=== PATIENT | female | born 1975 | race Caucasian/White ===

== ENCOUNTER 2024-03-06 09:46 | Outpatient (AMB) | payer OTHER, SELFPAY ==
[2024-03-06 10:11] VITALS: BP 130/78; PULSE 71; TEMP 36.4; O2SAT 97; BMI 29.4
--- NOTE | 2024-03-06 10:11 | MHC.OFFWIV ---
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 Intake Note: pt is here today for rt thumb infection started 1 week ago Patient Tobacco Use Status: Never used Tobacco Allergies amoxicillin Allergy (Mild, Verified 03/06/24 10:38) rash Medication List - Last Reconciled 03/06/24 by LESLIE Roblero doxycycline hyclate 100 mg PO BID Do you need a note to return to daycare/school/sports/work: No HPI HPI Comments History of Present Illness Details Patient is a 48-year-old female in today for sick visit. She states that for the past week she pulled a hangnail out on her right thumb, that left a small wound. Patient has tried utilizing Epsom salt on the area noticed that the skin around her thumb became red and painful to touch. Patient denies drainage from the area. Patient denies fever. [facility] Social History Patient Tobacco Use Status: Never used Tobacco Review of Systems Const All systems reviewed & are unremarkable except as noted in HPI and below Denies chills and Denies fever(s) Card Denies chest pain and Denies dyspnea Resp Denies dyspnea Physical Exam Vital Signs: Last Vital Signs Temp 97.5 F 03/06/24 10:11 Pulse 71 03/06/24 10:11 BP 130/78 03/06/24 10:11 Pulse Ox 97 03/06/24 10:11 Oxygen Delivery Method Room Air 03/06/24 10:11 BMI result Body Mass Index 29.4 Vital signs reviewed stable. Const Other: Appearance: Alert.? Oriented X3.? No acute distress.? Head: Normocephalic, atraumatic, no step-offs or deformities CVS: Normal heart rate and rhythm.? Pulses normal.? Skin: Erythema around base of right thumbnail, spread down 0.5 cm. No drainage. Warm to touch. ? Extremities: Tednerness ro right thumb. Full ROM. Neuro: Oriented X 3.? No motor deficit.? No sensory deficit. CN 2-12 intact Assessment & Plan Assessment & Plan (1) Cellulitis: Comment: Patient has allergy to amoxicillin, therefore will give doxycycline. Patient has been educated she can also utilize back straight luna to keep wound covered while using. Code(s): L03.90 - Cellulitis, unspecified Qualifiers: Site of cellulitis: extremity Site of cellulitis of extremity: finger Laterality: right Qualified Code(s): L03.011 - Cellulitis of right finger Plan: Take your medications as prescribed. If you were prescribed antibiotics today, it is important that you take your medication to their entirety, do not skip any doses, do not finish them early. Follow-up with your primary care provider this week. Return to the emergency department with new or worsening symptoms. Such as fevers, chills, chest pain, shortness of breath, nausea, vomiting, dizziness, headache, vision changes, lethargy In case of emergency call 911 Plan Follow-up with PCP Medications: New doxycycline hyclate 100 mg PO BID 14 tabs 0RF Coding Level of Care Code Est Pt Level 3 (33719) Diagnoses Cellulitis of finger of right hand L03.011 Site of cellulitis: extremity Site of cellulitis of extremity: finger Laterality: right Time Spent (min) 21
== END 2024-03-06 11:23 | disposition home or self-care (01) ==
PROVIDERS: Visit Provider Nurse Practitioner Primary Care
DX: L03.011 Cellulitis of right finger (principal)
CPT/HCPCS: 99213

== ENCOUNTER 2024-08-19 09:10 | Outpatient (AMB) | payer OTHER, SELFPAY ==
--- NOTE | 2024-08-19 09:31 | MHC.PC.OV ---
Vital Signs 08/19/24 09:38 Height 5 ft 3 in Weight 167 lb 6 oz BMI 29.6 BP 122/70 Blood Pressure Location Lt brachial Position Sitting Respiration 13 Pulse 76 Pulse Source Pulse Oximeter Pulse Oximetry (%) 98 Oxygen Delivery Method Room Air Intake Visit Reasons: annual Intake Note: new patient to establish care Allergies amoxicillin Allergy (Mild, Verified 08/19/24 09:56) rash Medication List - Last Reconciled 08/19/24 by July Cedeno, EDUCATION COORDINATOR- acyclovir 5% (Zovirax) appl topical citalopram 20 mg PO DAILY promethazine 25 mg AR Q6H PRN sumatriptan succinate 25 mg PO Q2-4H PRN valacyclovir (Valtrex) 1,000 mg PO ONCE PRN Tobacco use date assessed: 08/19/24 Dental Screening Dental Screen Date: 08/19/24 Did you have a dental visit in the last 12 months?: Yes Did you have a dental problem in the last 6 months where you did not have access to dental care?: No Was dental information given to patient?: Patient has dentist HPI HPI Comments History of Present Illness Details 48 y/o F with MDD, migraines, herpes, eczema, stress incont, hyperlidipemia, torticollis s/p hysterectomy d/t uterine prolapse; has mesh in place everything but ovaries Social: 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 Colon declined at this time. Declined cologaurd. DEXA last period 2011, has not had one, orderd to be done w her Mammo 08/2025 at [place] Specialist Uro Chiropractor Here today to [facility] care. Coming from Dr Hewitt, records pending Was at [place] prior - records pending MDD is well controlled on citalopram 20 mg. Taking daily. Has been on this for years. Would like to continue. Has chronic and recurrent herpes which is suppressed with valacyclovir and topical Zovirax. Migraines are well controlled with sumatriptan and p.r.n. promethazine suppositories. Needs refill on all of her medications Complains of chronic neck pain associated with a bump behind her right jaw which is worse when she was TENS or stressed. Reports that it can throbbing radiating to her right temporal from time to time. Her previous primary care provider did order a CT scan however this was denied by insurance. She was provided a medical marijuana card but she does use to help her sleep at times however uses this sparingly. She was seen in the emergency room during the time of COVID when this pain was the worst. She was diagnosed with torticollis. She has been following with a chiropractor since this time which helps to provide some relief. She also puts her neck interaction at home which also seems to help. Wonders what else she can do to help the pain. Did take meloxicam which helps greatly with the pain and wonders if she can have a prescription for this. Has a mesh placed for uterine and bladder prolapse. Reports this was placed several years ago by Urology. She was stress incontinence. Wonders if this needs any follow up. Finally she complains of chronic pruritus affecting her right anterior lower leg. Reports that she was too dry patches which she describes as callused areas from excessive scratching. Reports that when she is nervous or anxious she scratches at these areas. She was applied topical creams anti-itch ointment without relief. Exam Awake alert oriented, no acute distress Neck full range of motion, pain at the base of the sternocleidomastoid muscle on the right side. PERRLA, EOMI Regular rate and rhythm Lung sounds clear to auscultation bilat Mood and affect appropriate Anterior aspect of right knee and just below are 2 flesh colored dry patches that are rough to touch, barely visible. plan Refill of all medications sent Advised to self referral back to urology for evaluation and treatment of her mesh. If a referral is needed from me asked her to send me a portal message. Tdap today. Declined flu vaccine. Offered and declined labs at this time. Start meloxicam 7.5 mg po PRN to help pain and neck. Continue with chiropractic medicine Trial betamethasone to the areas on the right lower leg if no improvement may need to consider a dermatology referral Return to the office in 2024 for complete physical exam, sooner as needed This note is constructed using voice recognition software. While every effort has been made to ensure accuracy in child care sitter, still errors may have been included Sometimes, these errors may affect the content or meaning of the given sentence . Total time spent caring for the patient today was 45 minutes. This includes time spent before the visit reviewing the chart, time spent during the visit, and time spent after the visit on documentation [facility] Medical History (Updated 08/19/24 @ 12:29 by July Cedeno [facility]) Eczema Herpes Migraines Depression Sinusitis Surgical History (Updated 08/19/24 @ 09:43 by Abrahan Parks MA) H/O: hysterectomy Family History (Updated 08/19/24 @ 09:44 by Abrahan Parks MA) Sister Mental health disorder Substance abuse Pancreas cancer Mother Hypertension Father Esophagus cancer Social History (Updated 08/19/24 @ 09:45 by Abrahan Parks MA) Household Members: Children Both parents involved: No Caregiver staying overnight: No Housing: House Are you a primary childcare aide to a significant other at home: Yes Do you presently have visiting nurse or other home services: No 75 years or older and lives alone: No Alcohol intake: current Alcohol intake frequency: a few times a week Patient Tobacco Use Status: Never used Tobacco e-Cigarette/Vaping Use: Never Used service: No Current occupational status: employed Current occupation: [employer] Cognitive needs: No Hearing needs: No Vision needs: Yes (wear glasses) Questionnaire PHQ-9 Over the last 2 weeks, how often have you been bothered by any of the following problems? 1. Little interest or pleasure in doing things: not at all 2. Feeling down, depressed, or hopeless: not at all 3. Trouble falling or staying asleep, or sleeping too much: not at all 4. Feeling tired or having little energy: not at all 5. Poor appetite or overeating: not at all 6. Feeling bad about yourself - or that you are a failure or have let yourself or your family down: not at all 7. Trouble concentrating on things, such as reading the newspaper or watching television: not at all 8. Moving or speaking so slowly that other people could have noticed. Or the opposite - being so fidgety or restless that you have been moving around a lot more than usual: not at all 9. Thoughts that you would be better off or of hurting yourself in some way: not at all Total score: 0 Depression Screening Interpretation: Negative Depression Screening Done: Yes 28642 - PHQ-9 Billing: Yes Source: Developed by Drs. Joaquin Rosa, Rupali Frank, Jules Hussein and colleagues, with an educational shad from [employer]. Thrive Questionnaire Date Thrive assessed: 08/19/24 I am a: Patient What is your living situation today?: I have a steady place to live Within the past 12 months, did the food you bought not last and you didn't have the money to get more?: Never true Within the past 12 months, did you worry whether your food would run out before you got money to buy more?: Never true Do you have trouble paying for medicines?: No Do you have trouble getting transportation to medical appointments?: No Do you have trouble paying your heating and electricity bill?: No Do you have trouble taking care of your child, family member or friend?: No Do you have trouble with day-to-day activities such as bathing, preparing meals, shopping, managing finances, etc.?: No Are you currently unemployed and looking for a job?: No Are you interested in more education?: No Please select the resources that you would like help with: None Currently or been in a relationship where the following occur: No concerns reported THRIVE Score: 0 AUDIT C Alcohol Use Questionnaire (AUDIT-C) 1. How often do you have a drink containing alcohol?: 2-3 times a week 2. How many drinks containing alcohol do you have on a typical day when you are drinking?: 1 or 2 3. How often do you have six or more drinks on one occasion?: Never Total Score: 3 Score Reviewed/Action Taken: Yes MARK-7 AMB Questionnaire MARK-7 Date MARK - 7 assessed: 08/19/24 Feeling nervous, anxious, or on edge: 1 = Several days Not being able to stop or control worryin = Several days Worrying too much about different things: 0 = Not at all Trouble relaxin = Several days Being so restless that it is hard to sit still: 0 = Not at all Becoming easily annoyed or irritable: 1 = Several days Feeling afraid as if something awful might happen: 0 = Not at all Total MARK-7 score (0-4 normal; 5-9 mild; 10-14 moderate; 15-21 severe): 4 Source: Developed by Drs. Joaquin Rosa, Rupali Frank, Jules Hussein and colleagues, with an educational shad from [employer]. MARK-7 Assessment Billing MARK-7 Assessment Tool: MARK-7 Assessment 30409 Physical exam (Primary Care) Vital Signs: Last Vital Signs Pulse 76 08/19/24 09:38 Resp 13 08/19/24 09:38 BP 122/70 08/19/24 09:38 Pulse Ox 98 08/19/24 09:38 Oxygen Delivery Method Room Air 08/19/24 09:38 BMI result Body Mass Index 29.6 BMI Assessment/Plan discussion: High BMI High, discussed plan: lifestyle Tobacco/Smoking Status: Tobacco use Status Tobacco use date assessed 08/19/24 08/19/24 09:40 Patient Tobacco Use Status Never used Tobacco 08/19/24 09:45 e-Cigarette/Vaping Use Never Used 08/19/24 09:45 PHQ-9: PHQ-9 Score PHQ-9: Total score 0 08/19/24 10:34 Depression Screening Interpretation: Negative Thrive Assessment: Date of Thrive Assessment Date Thrive assessed 08/19/24 08/19/24 09:46 Currently or been in a relationship where the following occur: No concerns reported Immunizations Boostrix Tdap 2.5 Lf unit-8 mcg-5 Lf/0.5 mL intramuscular syringe Performing Provider: ELODIA Rao Performing Location: [facility] Family Medicine Administered by: Bianca Curiel RN on 08/19/24 10:32 Dose Route Admin Location Dispensed Lot Number Expiration Date [facility] [employer] 0.5 mL IM Left Deltoid 0.5 mL [id number] 08/09/25 [id number] [employer] VIS Given Date VIS Provided VIS Publication Date 08/19/24 Single Vaccine 21 Eligibility Eligibility Date Funding Source Not [facility] Eligible 08/19/24 Private Coding Level of Care Code New Pt Level 4 (53569) Complex EM visit Add On G2211 Diagnoses Mild episode of recurrent major depressive disorder F33.0 Major depression episode severity: mild Migraine without aura and without status migrainosus, not intractable G43.009 Status migrainosus presence: without status migrainosus Intractability: not intractable Right torticollis M43.6 Stress incontinence N39.3 Moderate mixed hyperlipidemia not requiring statin therapy E78.2 Hyperlipidemia type: moderate mixed hyperlipidemia not requiring statin therapy Herpes B00.9 Intrinsic eczema L20.84 Eczema type: intrinsic Overweight (BMI 25.0-29.9) E66.3 Menopausal state N95.1 Screening for osteoporosis Z13.820 Additional Codes MARK-7 Assessment Billing - MARK-7 Assessment Tool: AMRK-7 Assessment 61712 ([id number]) Assessment & Plan Assessment & Plan (1) MDD (major depressive disorder), recurrent episode: Code(s): F33.9 - Major depressive disorder, recurrent, unspecified Category: Medical Qualifiers: Major depression episode severity: mild Qualified Code(s): F33.0 - Major depressive disorder, recurrent, mild Plan: . (2) Migraine without aura: Code(s): G43.009 - Migraine without aura, not intractable, without status migrainosus Category: Medical Qualifiers: Status migrainosus presence: without status migrainosus Intractability: not intractable Qualified Code(s): G43.009 - Migraine without aura, not intractable, without status migrainosus Plan: . (3) Right torticollis: Code(s): M43.6 - Torticollis Category: Medical Plan: . (4) Stress incontinence: Code(s): N39.3 - Stress incontinence (female) (male) Category: Medical Plan: . (5) Hyperlipidemia: Code(s): E78.5 - Hyperlipidemia, unspecified Category: Medical Qualifiers: Hyperlipidemia type: moderate mixed hyperlipidemia not requiring statin therapy Qualified Code(s): E78.2 - Mixed hyperlipidemia Plan: . (6) Herpes: Code(s): B00.9 - Herpesviral infection, unspecified Category: Medical Plan: . (7) Eczema: Code(s): L30.9 - Dermatitis, unspecified Category: Medical Qualifiers: Eczema type: intrinsic Qualified Code(s): L20.84 - Intrinsic (allergic) eczema Plan: . (8) Overweight (BMI 25.0-29.9): Code(s): E66.3 - Overweight Category: Medical Plan: . (9) Menopausal state: Comment: 2011 Code(s): N95.1 - Menopausal and female climacteric states Category: Medical Plan: . (10) Screening for osteoporosis: Code(s): Z13.820 - Encounter for screening for osteoporosis Category: Medical Plan: . Orders: Orders TDaP Immunization Today Z23 - Encounter for immunization XR DEXA axial skeleton 1 Year N95.1 - Menopausal and female climacteric states, Z13.820 - Encounter for screening for osteoporosis Medications: New acyclovir 5% (Zovirax) 1 appl topical ONCE PRN 5 grams 1RF HSV flare promethazine 25 mg AR Q6H PRN 12 ea 0RF nausea and vomiting meloxicam 7.5 mg PO DAILY PRN 90 tabs 0RF pain citalopram 20 mg PO DAILY 90 tabs 2RF sumatriptan succinate do not exceed 8 doses per 24 hrs 25 mg PO Q2-4H PRN 7 tabs 5RF migraine headache Valtrex (valacyclovir) 1,000 mg PO ONCE PRN 30 tabs 0RF outbreak NS betamethasone dipropionate 0.05% use for no more than 2 weeks in a row 1 appl topical BID PRN 45 grams 2RF skin irritation
[2024-08-19 09:38] VITALS: BP 122/70; PULSE 76; RESP 13; O2SAT 98; BMI 29.6
== END 2024-08-19 10:32 | disposition home or self-care (01) ==
PROVIDERS: Visit Provider Nurse Practitioner Family
DX: F33.0 Major depressive disorder, recurrent, mild (principal); G43.009 Migraine without aura, not intractable, without status migrainosus; M43.6 Torticollis; N39.3 Stress incontinence (female) (male); E78.2 Mixed hyperlipidemia; B00.9 Herpesviral infection, unspecified; L20.84 Intrinsic (allergic) eczema; E66.3 Overweight; N95.1 Menopausal and female climacteric states; Z13.820 Encounter for screening for osteoporosis; Z23 Encounter for immunization

== ENCOUNTER → 2024-08-19 09:10 | Outpatient (BNVA) | payer OTHER, SELFPAY | PROVIDERS: Visit Provider Nurse Practitioner Family | DX: F33.0 Major depressive disorder, recurrent, mild (principal); G43.009 Migraine without aura, not intractable, without status migrainosus; M43.6 Torticollis; N39.3 Stress incontinence (female) (male); Z23 Encounter for immunization; E78.2 Mixed hyperlipidemia; B00.9 Herpesviral infection, unspecified; L20.84 Intrinsic (allergic) eczema; E66.3 Overweight; Z68.29 Body mass index [BMI] 29.0-29.9, adult; N95.1 Menopausal and female climacteric states; Z79.899 Other long term (current) drug therapy | CPT/HCPCS: 90471; 90715; 96127 ==

== ENCOUNTER 2025-01-14 13:42 | Outpatient (AMB) | payer OTHER, SELFPAY ==
[2025-01-14 13:58] VITALS: BP 122/74; PULSE 76; TEMP 36.6; O2SAT 98
--- NOTE | 2025-01-14 13:58 | AM.OFFWIN_ITS ---
Intake Vital Signs 01/14/25 13:58 Height 5 ft 3 in BP 122/74 Blood Pressure Location Lt brachial Position Sitting Pulse 76 Pulse Source Pulse Oximeter Temp 97.9 F Temp Source Oral Pulse Oximetry (%) 98 Intake Visit Reasons: EP yeast infection Patient Tobacco Use Status: Never used Tobacco Allergies amoxicillin Allergy (Mild, Verified 01/14/25 13:59) rash Medication List - Last Reconciled 01/14/25 by Denise Storey MD acyclovir 5% (Zovirax) 1 appl topical ONCE PRN betamethasone dipropionate 0.05% 1 appl topical BID PRN citalopram 20 mg PO DAILY meloxicam 7.5 mg PO DAILY PRN promethazine 25 mg AL Q6H PRN sumatriptan succinate 25 mg PO Q2-4H PRN valacyclovir (Valtrex) 1,000 mg PO ONCE PRN Do you need a note to return to daycare/school/sports/work: No HPI EP yeast infection HPI Details History - The patient is a 49-year-old female pr esenting with recurrent vulvovaginal candidiasis. - She reports a history of recurrent epi sodes, with the most recent occurring last week. - Treatment with Fluconazole was prescri bed but symptoms persist - Wvsm-uox-nawvqmz antifungal treatments have been ineffective. - Symptoms include itching and a white d ischarge over the past few days. - There is no history of diabetes that m ight predispose her to recurrent infections. Problem List - Recurrent Vulvovaginal Candidiasis Patient Instructions - Take the prescribed medication as dire cted for the treatment of the yeast infection. - Monitor symptoms and report any worsen ing or lack of improvement. - Maintain personal hygiene to help prev ent further infections. Review of Systems - General: No fever no chills - Neurological: No headaches no dizziness - Ear nose throat: No sore throat no hearing difficulty no ear pain - Cardiovascular: No syncope, no chest pain, no palpitations - Gastrointestinal: No nausea vomiting or diarrhea Physical Exam - General: No acute distress - HEENT: No acute findings - Neck: Supple - Respiratory system: Able to talk in f ull sentences, no audible wheeze - Extremities: No new findings - SOFTWARE DEVELOPER: Alert awake oriented x3 motor se nsory intact - Skin: Normal turgor [facility] Medical History Eczema Herpes Migraines Depression Sinusitis Surgical History H/O: hysterectomy Family History Sister Mental health disorder Substance abuse Pancreas cancer Mother Hypertension Father Esophagus cancer Social History Household Members: Children Both parents involved: No Caregiver staying overnight: No Housing: House Are you a primary home care manager rn to a significant other at home: Yes Do you presently have visiting nurse or other home services: No 75 years or older and lives alone: No Alcohol intake: current Alcohol intake frequency: a few times a week Patient Tobacco Use Status: Never used Tobacco e-Cigarette/Vaping Use: Never Used service: No Current occupational status: employed Current occupation: [employer] Cognitive needs: No Hearing needs: No Vision needs: Yes (wear glasses) Physical Exam Vital Signs: Last Vital Signs Temp 97.9 F 01/14/25 13:58 Pulse 76 01/14/25 13:58 BP 122/74 01/14/25 13:58 Pulse Ox 98 01/14/25 13:58 Results AMB Urinalysis, Automated UA Leukoctes 0 Torey/uL Last Edit by Celio Suero CMA on 01/14/25 14:07 UA Nitrite Negative Last Edit by Celio Suero CMA on 01/14/25 14:07 UA Urobilinogen 0.2 mg/dL Last Edit by Celio Suero CMA on 01/14/25 14 :07 UA Protein 0 mg/dL Last Edit by Celio Suero CMA on 01/14/25 14:07 UA pH 6.0 Last Edit by Celio Suero CMA on 01/14/25 14:07 UA Blood 0 Jeancarlos/uL Last Edit by Celio Suero CMA on 01/14/25 14:07 UA Specific [place] 1.020 Last Edit by Celio Suero CMA on 01/14/25 14:07 UA Ketone Negative Last Edit by Celio Suero CMA on 01/14/25 14:07 UA Bilirubin 0 mg/dL Last Edit by Celio Suero CMA on 01/14/25 14:07 UA Glucose 0 mg/dL Last Edit by Celio Suero CMA on 01/14/25 14:07 Results Reviewed Results Reviewed: Laboratory Last Values Urine pH (Auto) 6.0 01/14/25 14:07 Specific [place] (Auto) 1.020 01/14/25 14:07 Urine Protein (Auto) 0 mg/dL 01/14/25 14:07 Glucose (UA)(Auto) 0 mg/dL 01/14/25 14:07 Urine Ketones (Auto) Negative 01/14/25 14:07 Urine Blood (Auto) 0 Jeancarlos/uL 01/14/25 14:07 Urine Nitrite (Auto) Negative 01/14/25 14:07 Urine Bilirubin (Auto) 0 mg/dL 01/14/25 14:07 Urine Urobilinogen (Auto) 0.2 mg/dL 01/14/25 14:07 Leukocyte Esterase (Auto) 0 Torey/uL 01/14/25 14:07 Assessment & Plan Assessment & Plan (1) Vaginal yeast infection: Code(s): B37.31 - Acute candidiasis of vulva and vagina Plan History - The patient is a 49-year-old female presenting with recurrent vulvovaginal candidiasis. - She reports a history of recurrent episodes, with the most recent occurring last week. - Treatment with Fluconazole was prescribed but symptoms persist - Hyqa-wdy-ntirpdj antifungal treatments have been ineffective. - Symptoms include itching and a white discharge over the past few days. - There is no history of diabetes that might predispose her to recurrent infections. Problem List - Recurrent Vulvovaginal Candidiasis Patient Instructions - Take the prescribed medication as directed for the treatment of the yeast infection. - Monitor symptoms and report any worsening or lack of improvement. - Maintain personal hygiene to help prevent further infections. Orders: Orders AMB Urinalysis Automated Today Z13.9 - Encounter for screening, unspecified Medications: New fluconazole 150 mg PO Q3D 4 days 4 tabs 0RF Coding Level of Care Code Est Pt Level 3 (00205) Diagnoses Vaginal yeast infection B37.31
--- OUTSIDE RECORDS SUMMARY | 2025-01-14 16:20 | XMS_ITS | Patient Health Record ---
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 Name Role Phone GANESH VALENCIA Primary Care Provider [phone] ALLERGIES Allergen (clinical drug ingredient) Drug/Non Drug Allergy documented on EMR Reaction Allergy Type Onset Date Status amoxicillin Amoxicillin rash Drug Allergy Act arsenio REASON FOR REFERRAL No Information MEDICATIONS Medication SIG (Take, Route, Frequency, Duration) Notes Start Date End Date Status Doxycycline Monohydrate 100 MG Oral doxycycline monohydrate 100 mg capsule 11/09/2022 Not-Taking Citalopram Hydrobromide 20 MG 1 tablet Oral Once a day for 90 days citalopram 20 mg tablet 07/26/2022 Active Valtrex 1 GM 1 tablet Orally Once a day Active predniSONE 20 MG Oral predniSONE 20 m g tablet 11/10/2022 Not-Taking PROBLEMS Problem Type ICD Code Onset Dates Problem Status W/U Status Risk SNOMED Code Notes Problem Abnormal mammogram (R92.8) Active confirmed [id number] Encounters Encounter Location Date Provider Diagnosis [address] [id number] 05/07/2024 GANESH VALENCIA PLAN OF TREATMENT Pending Test Test Name Order Date Ultrasound : Breasts, bilateral 08/15/20 23 Mammogram, left breast 08/23/2023 Mammogram (Bilateral), Diagnostic comput er aided 08/15/2023 Insurance Providers Payer Name Payer Address Payer Phone Subscriber Number Group Number Insured Name Patient Relationship to Insured Coverage Start Date Coverage End Date [address] [place] [phone] [id number] NIMISHA RUIZ Self - patient is the insured MEDICAL (GENERAL) HISTORY Medical History History ICD Code Sinus infections UTI's Wears glasses/contact Surgical History Surgery Date(Month/Year) Bladder Sling 2011 Hysterectomy 2011
--- OUTSIDE RECORDS SUMMARY | 2025-01-14 16:20 | XMS_ITS ---
Author Organization [facility] Address [address] [place] [id number] Care Team Providers Care Stake Setter Name Role Phone GANESH HEWITT Primary Care Provider REASON FOR VISIT CPE Encounters Encounter Location Date Provider Diagnosis [address] [id number] 05/07/2024 GANESH HEWITT PLAN OF TREATMENT No Information Progress Notes * NOEL RUIZB: 7 (49 yo F)Acc No.[id number]:05/07/2024 Progress Note Patient:??NIMISHA RUIZ Provider:??Ganesh Hewitt DNP :1975?Age:48 Y?Sex:Fe male Date:05/07/2024 Phone: Address:[address] [place] [address] [id number] Subjective: * Chief Complaints: * ?1. CPE. * Medical History:?? Objective: Assessment: Plan: * Treatment: Care Plan: * Problems:?? * Billing Information: * Visit Code:?? * Procedure Codes:?? * Sign off status: Pending * Provider:??Ganesh Hewitt DNP Date:??0 05/07/2024
--- OUTSIDE RECORDS SUMMARY | 2025-01-14 16:20 | XMS_ITS | Clinical Summary ---
Author Organization [facility] it Address [address] [place] [address] Care Team Providers Care Production Engineer Track Name Role Phone Unavailable Primary Care Provider Unavailabl e Surgical History Surgery Date Site/Laterality Comments TONSILLECTOMY PROCEDURE: HISTORICAL TONSILLECTOMY HYSTERECTOMY 2011 PROCEDURE: HISTORICAL HYSTERECTOMY; COMMENT: ovaries left; vaginal wall repair as well for prolapse Medical History Medical History Date Comments Migraine without aura, witho ut mention of intractable migraine without mention of status migrainosus 02/13/2006 DX:Migraine without aura , without mention of intractable migraine without mention of status migrainosus Other acne 02/13/2006 DX:Other acne Allergic rhinitis 02/20/2011 DX:Allergic rh initis Depression DX:Depression Genital herpes DX:Genital herpe s Family History Medical History Relation Name Comments Breast cancer Aunt paternal aunt Other: esophageal cancer Father dec eased Other: alive and well Mother Depression Paternal Grandmother Diabetes Sister 1 hep c; depressi on Other: liver failure Sister 2 Other: Kidney disease Sister 3 Relation Name Status Comments Aunt Father Mother Paternal Grandmother Sister 1 Sister 2 Sister 3 Social History Tobacco Use Types Packs/Day Years Used Date Smoking Tobacco: Never Smokeless Tobacco: Never Alcohol Use Standard Drinks/Week Comments Yes 0 (1 standard drink = 0.6 oz pur e alcohol) Comments Unknown Sex and Gender Information Value Date Recorded Sex Assigned at Not on file Legal Sex Female 5:55 PM EST Gender Identity Not on file Sexual Orientation Not on file Obstetrics History Plan of Treatment Upcoming Encounters Date Type Department Care Team ([facility] Contact Info) Description 09/10/2025 8:30 AM EDT Appointment Radiology Department [address] [phone] Health Maintenance Due Date Last Done Comments Hepatitis B Vaccines (1 of 3 - 19+ 3-dose series) 1996 Cervical Cancer Screening: Pap Smear 1998 DTaP,Tdap,and Td Vaccines (2 - Td or Tdap) 06/06/2017 06/06/2007 Cholesterol Screening (Lipid Panel) 10/21/2022 Colorectal Cancer Screening: Colonoscopy 10/21/2022 Depression Screening 10/21/2022 HIV Screening 10/21/2022 Hepatitis C Screening 10/21/2022 Social Influencers of Health Screening 10/21/2022 COVID-19 Vaccine ( season) 2024 Influenza Vaccine (#1) 2024 6, 10/06/2015, 07/18/2013, Additional history exists Breast Cancer Screening 08/20/2026 08/20/20 24, 08/20/2024, 08/29/2023, Additional history exists HIB Vaccines Aged Out No longer eligi ble based on patient's age to complete this topic HPV Vaccines Aged Out No longer eligi ble based on patient's age to complete this topic Hepatitis A Vaccines Aged Out No long er eligible based on patient's age to complete this topic IPV Vaccines Aged Out No longer eligi ble based on patient's age to complete this topic MMR Vaccines Aged Out No longer eligi ble based on patient's age to complete this topic Meningococcal ACWY Vaccine Aged Out N o longer eligible based on patient's age to complete this topic Meningococcal B Vacine Aged Out No lo nger eligible based on patient's age to complete this topic Pneumococcal Vaccine: Pediatrics (0 to 5 Years) and At-Risk Patients (6 to 64 Years) Aged Out No longer eligible based on patient's age to complete this topic RSV Immunization Patients Under 20 months Aged Out No longer eligible based on patient's age to complete this topic Varicella Vaccines Aged Out No longer eligible based on patient's age to complete this topic Procedures Procedure Name Priority Date/Time Associated Diagnosis Comments SCREENING MAMMOGRAPHY BI 2-VIEW BREAST INC CAD Routine 08/20/2024 10:12 AM EDT Encounter for screening mammogram for malignant neoplasm of breast from Last 3 Months or Most Recently Relevant to Health Maintenance Results * SCREENING MAMMOGRAPHY BI 2-VIEW BREAST INC CAD (08/20/2024 10:12 AM EDT) Anatomical Region Laterality Modality Radiographic Kaitlynn ging 08/10/2023 10:0 3 AM EDT Narrative 08/20/2024 3:31 PM EDT This is a summary report. The complete report is available in the patient's medical record. If you cannot access the medical record, please contact the sending organization for a detailed fax or copy. Exam: Screening mammogram Findings: Digital bilateral full-field screening mammography is performed with tomosynthesis and interpreted with the aid of computer-aided detection. ??Comparison is made with 08/10/2023 and as far back as 07/16/2020. Breast parenchyma is heterogeneously dense, which may obscure small masses. ??Chronic bilateral scattered and loosely grouped calcifications which have similar appearance in both breasts without a dominant suspicious grouping. No new suspicious mass or architectural distortion. Impression: No mammographic evidence of malignancy. BI-RADS 2-benign [address] [id number] Procedure Note Cherrie Mae MD - 10/06/2024 This is a summary report. The complete report is available in thepatient's medical record. If you cannot access the medical record, pleasecontact the sending organization for a detailed fax or copy. Exam: Screening mammogram Findings: Digital bilateral full-field screening mammography is performedwith tomosynthesis and interpreted with the aid of computer-aideddetection. Comparison is made with 08/10/2023 and as far back as07/16/2020. Breast parenchyma is heterogeneously dense, which may obscure smallmasses. Chronic bilateral scattered and loosely grouped calcificationswhich have similar appearance in both breasts without a dominantsuspicious grouping. No new suspicious mass or architectural distortion. Impression: No mammographic evidence of malignancy. BI-RADS 2-benign [address] [address] July [place] [employer] DISPATCHER IMG XR PROCEDURES Final Res ult from Last 3 Months or Most Recently Relevant to Health Maintenance
--- OUTSIDE RECORDS SUMMARY | 2025-01-14 16:20 | XMS_ITS ---
Author Organization [facility], [facility] Address [address] [place] [id number] Care Team Providers Care Er Registrar Name Role Phone GANESH VALENCIA Primary Care Provider REASON FOR VISIT Refills MEDICATIONS Medication SIG (Take, Route, Frequency, Duration) Notes Start Date End Date Status Citalopram Hydrobromide 20 MG 1 tablet Oral Once a day for 90 days citalopram 20 mg tablet 07/26/2022 Active ZyrTEC Allergy 10 MG 1 tablet Oral Once a day for 90 days ZyrTEC 10 mg tablet 07/26/2022 03/08/2024 Active Encounters Encounter Location Date Provider Diagnosis [facility], [address] [phone] 09/10/2023 GANESH VALENCIA PLAN OF TREATMENT Medication Medication Name Sig Start Date Stop Date Notes Citalopram Hydrobromide 20 MG 1 tablet Oral Once a day for 90 days 07/26/2022 citalopram 20 mg tablet ZyrTEC Allergy 10 MG 1 tablet Oral Once a day for 90 days 07/26/2022 03/08/2024 ZyrTEC 10 mg tablet Progress Notes * TYREE RUIZ: 7 (47 yo F)Acc No.[id number]:09/10/2023 Patient:??NIMISHA RUIZ :1975?Age:47 Y?Sex:Fe male Phone: Address:[address] [place] [phone] * Refills?? Refill Citalopram Hydrobromide Tablet, 20 MG, Oral, 90 Tablet, 1 tablet, Once a day, 90 days, Refills=3 Refill ZyrTEC Allergy Tablet, 10 MG, Oral, 90 Tablet, 1 tablet, Once a day, 90 days, Refills=4 * true * Date:??
--- OUTSIDE RECORDS SUMMARY | 2025-01-14 16:20 | XMS_ITS ---
Author Organization [facility] Address [address], [place] [phone] Care Team Providers Care Special Education Coordinator Name Role Phone GANESH VALENCIA Primary Care Provider REASON FOR VISIT Needs referral Encounters Encounter Location Date Provider Diagnosis [facility] [address], [place] [phone] 08/23/2023 GANESH ERIK Abnormal mammogram R92.8 ASSESSMENTS Encounter Date Diagnosis Assessment Notes Treatment Notes Treatment Clinical Notes Section Notes 08/23/2023 Abnormal mammogram (ICD-10 - R92.8) PLAN OF TREATMENT Pending Test Test Name Order Date Mammogram, left breast 08/23/2023 Progress Notes * RIAZ RUIZLEONIDASB: 7 (47 yo F)Acc No.[id number]:08/23/2023 Patient:??NIMISHA RUIZ :1975?Age:47 Y?Sex:Fe male Phone: Address:[address] [place] [phone] Subjective: * Chief Complaints: * ?Needs referral * Medical History:?? * Surgical History:?? * Hospitalization/Major Diagno stic Procedure:?? * Medications:?? Objective: Assessment: * Assessment: 1.??Abnormal mammogram - R92 .8?? Plan: * Treatment: * * Procedure Codes:?? * true * Date:??
== END 2025-01-14 14:36 | disposition home or self-care (01) ==
PROVIDERS: PCP Nurse Practitioner Family; Visit Provider Internal Medicine
DX: B37.31 Acute candidiasis of vulva and vagina (principal); Z13.9 Encounter for screening, unspecified

== ENCOUNTER → 2025-01-14 13:42 | Outpatient (BNVA) | payer OTHER, SELFPAY | PROVIDERS: PCP Nurse Practitioner Family; Visit Provider Internal Medicine | DX: B37.31 Acute candidiasis of vulva and vagina (principal) | CPT/HCPCS: 81003 ==

== ENCOUNTER 2025-01-28 13:26 | Outpatient (AMB) | payer OTHER, SELFPAY ==
[2025-01-28 13:28] VITALS: BP 120/78; PULSE 70; TEMP 36.6; O2SAT 97; BMI 30.1
--- NOTE | 2025-01-28 13:28 | A.OFFPC_ITS ---
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: No Accompanied by: Self / Same As Patient Allergies amoxicillin Allergy (Mild, Verified 01/28/25 13:36) rash Medication List - Last Reconciled 01/28/25 by Denise Storey MD acyclovir 5% (Zovirax) 1 appl topical ONCE PRN betamethasone dipropionate 0.05% 1 appl topical BID PRN citalopram 20 mg PO DAILY meloxicam 7.5 mg PO DAILY PRN promethazine 25 mg MD Q6H PRN sumatriptan succinate 25 mg PO Q2-4H PRN valacyclovir (Valtrex) 1,000 mg PO ONCE PRN Tobacco use date assessed: 01/28/25 Dental Screening Dental Screen Date: 01/28/25 Did you have a dental visit in the last 12 months?: Yes Did you have a dental problem in the last 6 months where you did not have access to dental care?: No Was dental information given to patient?: Patient has dentist HPI Annual PE-per Dr West HPI Details Chief Complaint - The patient presents for a establish c are visit and physical exam History - The patient is a 49-year-old female pr esenting for a wellness visit. - Diagnosed with migraines several years ago, currently experiences approximately three episodes per year managed with sumatriptan and promethazine. - Experiences neck pain likely associate d with stress-related tension. Sees chiropractor - Has a history of herpes simplex virus with outbreaks occurring three to five times annually genitalia, managed with episodic antiviral treatment. Valacyclovir - Underwent a total hysterectomy in 2011 following uterine prolapse linked to ; ovaries were retained. - Reports elevated BMI and past hyperlip idemia, expressing concern regarding weight management and cholesterol levels. - Interested in obtaining a colonoscopy, as recommended for her age group. - would like to see Dermatology for jose brown skin cancer screening - I noticed family history of esophageal cancer in father and pancreatic cancer in brother - sister due to liver abnorm ality secondary to methadone use Health Maintenance - Mammogram completed in August 2024 at [facility]. - Discussed the need for colorectal canc er screening; patient is due for a colonoscopy. - Addressed weight management and elevat ed BMI; patient advised to consider nutritional guidance. - Reviewed eligibility and discussed pot ential coverage for the shingles vaccine by insurance under age 50. Medications - Sumatriptan for migraine management, t aken as needed. - Promethazine suppository for migraine- associated symptoms. - Valtrex (valacyclovir) and acyclovir f or herpes simplex virus treatment during outbreaks. - Recent tetanus vaccine administered in August 2022. Social History - Employed with the [employer] and [employer]. - Does not smoke and consumes alcohol oc casionally. - BMI noted to be elevated; expressed in terest in weight management strategies. - Managing personal responsibilities osvaldoruchi keen with care for her injured mother. Family History - Father from esophageal cancer , history of alcohol and tobacco use. - Mother, age 80, currently in rehabilit ation following a fall resulting in a fractured pelvis and shattered right wrist. - Brother in [place] diagnosed with pancre atic cancer, long-term tumor growth suspected. - Sister due to liver failure f rom methadone use in 2021. Problem List - Migraine - stress related neck pain - Herpes Simplex Virus (HSV) infection g enitalia with flare-up through 2- 4 times a year - History of uterine prolapse status pos t complete hysterectomy, ovaries retained - Hyperlipidemia - obesity Patient Instructions - Consider scheduling a colonoscopy for recommended colorectal cancer screening. - Maintain a healthy weight; consider se eking nutritional advice. - Consult pharmacy regarding eligibility for the shingles vaccine under age 50. - Follow up with dermatology for potenti al mole assessment. - Use sumatriptan and promethazine as ne eded for migraines and - continue antiviral treatment for herpes outbreaks as usual. Review of Systems - General: No fever no chills - Neurological: No headaches no dizzin ess - Ear nose throat: No sore throat no hearing difficulty no ear pain - Cardiovascular: No syncope, no chest pain, no palpitations - Gastrointestinal: No nausea vomiting or diarrhea - Endocrine: No polyuria polydipsia no heat intolerance - Genitourinary: No dysuria - Skin: No new complaints Physical Exam General: Cooperative, healthy appearing, comfortable, no acute distress Orientation: Patient oriented x3 Limitations: None Head: Normal to inspection Ears: Within normal limit visually Nose: Normal external nose present Face and sinus: Normal facial exam Eyes: Appearance normal, extraocular movement intact pupils reactive Neck: Normal visual inspection and supple, patient reports neck pain behind the ear, possibly due to stress Respiratory: Normal respiratory effort and able to speak in complete sentences. Clear to auscultation, no stridor Cardiovascular: S1 and S2 regular in rate and rhythm Breast exam through OBGYN GI: Normal to inspection. Soft to palpation and nontender Skin: Turgor normal, no acute findings Neuro: Patient oriented x3, motor sensory intact, balance intact, tandem pass Extremities: Normal to inspection, no swelling or pain in joints, no problem with shoulders or back PFSH Medical History Eczema Herpes Migraines Depression Sinusitis Surgical History H/O: hysterectomy Family History Sister Mental health disorder Substance abuse Pancreas cancer Mother Hypertension Father Esophagus cancer Social History Household Members: Children Both parents involved: No Caregiver staying overnight: No Housing: House Are you a primary acute care physical therapist to a significant other at home: Yes Do you presently have visiting nurse or other home services: No 75 years or older and lives alone: No Alcohol intake: current Alcohol intake frequency: a few times a week Patient Tobacco Use Status: Never used Tobacco e-Cigarette/Vaping Use: Never Used service: No Current occupational status: employed Current occupation: [employer] Cognitive needs: No Hearing needs: No Vision needs: Yes (wear glasses) Questionnaire PHQ-9 Over the last 2 weeks, how often have you been bothered by any of the following problems? 1. Little interest or pleasure in doing things: not at all 2. Feeling down, depressed, or hopeless: several days 3. Trouble falling or staying asleep, or sleeping too much: not at all 4. Feeling tired or having little energy: several days 5. Poor appetite or overeating: not at all 6. Feeling bad about yourself - or that you are a failure or have let yourself or your family down: not at all 7. Trouble concentrating on things, such as reading the newspaper or watching television: not at all 8. Moving or speaking so slowly that other people could have noticed. Or the opposite - being so fidgety or restless that you have been moving around a lot more than usual: not at all 9. Thoughts that you would be better off or of hurting yourself in some way: not at all Total score: 2 Depression Screening Interpretation: Negative Depression Screening Done: Yes 09227 - PHQ-9 Billing: Yes Source: Developed by Drs. Joaquin Rosa, Rupali Frank, Jules Hussein and colleagues, with an educational shad from [employer]. Thrive Questionnaire Date Thrive assessed: 01/28/25 I am a: Patient What is your living situation today?: I have a steady place to live Within the past 12 months, did the food you bought not last and you didn't have the money to get more?: Never true Within the past 12 months, did you worry whether your food would run out before you got money to buy more?: Never true Do you have trouble paying for medicines?: No Do you have trouble getting transportation to medical appointments?: No Do you have trouble paying your heating and electricity bill?: No Do you have trouble taking care of your child, family member or friend?: No Do you have trouble with day-to-day activities such as bathing, preparing meals, shopping, managing finances, etc.?: No Are you currently unemployed and looking for a job?: No Are you interested in more education?: No Please select the resources that you would like help with: None Currently or been in a relationship where the following occur: No concerns reported THRIVE Score: 0 AUDIT C Alcohol Use Questionnaire (AUDIT-C) 1. How often do you have a drink containing alcohol?: 2-3 times a week 2. How many drinks containing alcohol do you have on a typical day when you are drinking?: 1 or 2 3. How often do you have six or more drinks on one occasion?: Never Total Score: 3 Score Reviewed/Action Taken: Yes MARK-7 AMB Questionnaire MARK-7 Date MARK - 7 assessed: 01/28/25 Feeling nervous, anxious, or on edge: 1 = Several days Not being able to stop or control worryin = Not at all Worrying too much about different things: 1 = Several days Trouble relaxin = Nearly every day Being so restless that it is hard to sit still: 1 = Several days Becoming easily annoyed or irritable: 0 = Not at all Feeling afraid as if something awful might happen: 1 = Several days Total MARK-7 score (0-4 normal; 5-9 mild; 10-14 moderate; 15-21 severe): 7 Source: Developed by Drs. Joaquin Rosa, Rupali Frank, Jules Hussein and colleagues, with an educational shad from [employer]. MARK-7 Assessment Billing MARK-7 Assessment Tool: MARK-7 Assessment 69897 Physical exam (Primary Care) Vital Signs: Last Vital Signs Temp 97.8 F 01/28/25 13:28 Pulse 70 01/28/25 13:28 BP 120/78 01/28/25 13:28 Pulse Ox 97 01/28/25 13:28 Oxygen Delivery Method Room Air 01/28/25 13:28 BMI result Body Mass Index 30.1 Tobacco/Smoking Status: Tobacco use Status Tobacco use date assessed 01/28/25 01/28/25 13:39 Patient Tobacco Use Status Never used Tobacco 01/28/25 13:31 e-Cigarette/Vaping Use Never Used 01/28/25 13:31 PHQ-9: PHQ-9 Score PHQ-9: Total score 2 01/28/25 14:02 Depression Screening Interpretation: Negative Thrive Assessment: Date of Thrive Assessment Date Thrive assessed 01/28/25 01/28/25 13:31 Currently or been in a relationship where the following occur: No concerns reported Coding Level of Care Code New Pt Level 4 (64589) New Pt Prev Care 40-64y(47244) Diagnoses Encounter for general adult medical examination with abnormal findings Z00.01 Migraine without aura and without status migrainosus, not intractable G43.009 Intractability: not intractable Status migrainosus presence: without status migrainosus Recurrent genital herpes A60.00 Class 1 obesity due to excess calories without serious comorbidity with body m ass index (BMI) of 30.0 to 30.9 in adult E66.811; E66.09; Z68.30 Obesity classification: adult class 1 (BMI 30 - 34.9) Serious obesity comorbidity presence: without serious comorbidity Body mass index: BMI 30.0-30.9 Moderate mixed hyperlipidemia not requiring statin therapy E78.2 Hyperlipidemia type: moderate mixed hyperlipidemia not requiring statin therapy Family history of pancreatic cancer Z80.0 Family history of esophageal cancer Z80.0 Family history of drug abuse Z81.3 Colon cancer screening Z12.11 Additional Codes MARK-7 Assessment Billing - MARK-7 Assessment Tool: MARK-7 Assessment 73957 ([id number]) PHQ-9 - 31810 - PHQ-9 Billing: Yes ([id number]) Assessment & Plan Assessment & Plan (1) Encounter for general adult medical examination with abnormal findings: Code(s): Z00.01 - Encounter for general adult medical examination with abnormal findings Category: Medical (2) Migraine without aura: Code(s): G43.009 - Migraine without aura, not intractable, without status migrainosus Category: Medical Qualifiers: Intractability: not intractable Status migrainosus presence: without status migrainosus Qualified Code(s): G43.009 - Migraine without aura, not intractable, without status migrainosus (3) Recurrent genital herpes: Code(s): A60.00 - Herpesviral infection of urogenital system, unspecified Category: Medical (4) Obesity due to excess calories: Code(s): E66.09 - Other obesity due to excess calories Category: Medical Qualifiers: Obesity classification: adult class 1 (BMI 30 - 34.9) Serious obesity comorbidity presence: without serious comorbidity Body mass index: BMI 30.0- 30.9 Qualified Code(s): E66.811 - Obesity, class 1; E66.09 - Other obesity due to excess calories; Z68.30 - Body mass index [BMI] 30.0-30.9, adult (5) Hyperlipidemia: Code(s): E78.5 - Hyperlipidemia, unspecified Category: Medical Qualifiers: Hyperlipidemia type: moderate mixed hyperlipidemia not requiring statin therapy Qualified Code(s): E78.2 - Mixed hyperlipidemia (6) Family history of pancreatic cancer: Code(s): Z80.0 - Family history of malignant neoplasm of digestive organs Category: Medical (7) Family history of esophageal cancer: Code(s): Z80.0 - Family history of malignant neoplasm of digestive organs Category: Medical (8) Family history of drug abuse: Code(s): Z81.3 - Family history of other psychoactive substance abuse and dependence Category: Medical (9) Colon cancer screening: Code(s): Z12.11 - Encounter for screening for malignant neoplasm of colon Category: Medical Plan Chief Complaint - The patient presents for a establish care visit and physical exam History - The patient is a 49-year-old female presenting for a wellness visit. - Diagnosed with migraines several years ago, currently experiences approximately three episodes per year managed with sumatriptan and promethazine. - Experiences neck pain likely associated with stress-related tension. Sees chiropractor - Has a history of herpes simplex virus with outbreaks occurring three to five times annually genitalia, managed with episodic antiviral treatment. Valacyclovir - Underwent a total hysterectomy in 2011 following uterine prolapse linked to ; ovaries were retained. - Reports elevated BMI and past hyperlipidemia, expressing concern regarding weight management and cholesterol levels. - Interested in obtaining a colonoscopy, as recommended for her age group. - would like to see Dermatology for annual skin cancer screening - I noticed family history of esophageal cancer in father and pancreatic cancer in brother - sister due to liver abnormality secondary to methadone use Health Maintenance - Mammogram completed in August 2024 at [facility]. - Discussed the need for colorectal cancer screening; patient is due for a colonoscopy. - Addressed weight management and elevated BMI; patient advised to consider nutritional guidance. - Reviewed eligibility and discussed potential coverage for the shingles vaccine by insurance under age 50. Medications - Sumatriptan for migraine management, taken as needed. - Promethazine suppository for migraine-associated symptoms. - Valtrex (valacyclovir) and acyclovir for herpes simplex virus treatment during outbreaks. - Recent tetanus vaccine administered in August 2022. Social History - Employed with the [employer] and [employer]. - Does not smoke and consumes alcohol occasionally. - BMI noted to be elevated; expressed interest in weight management strategies. - Managing personal responsibilities along with care for her injured mother. Family History - Father from esophageal cancer, history of alcohol and tobacco use. - Mother, age 80, currently in rehabilitation following a fall resulting in a fractured pelvis and shattered right wrist. - Brother in [place] diagnosed with pancreatic cancer, long-term tumor growth suspected. - Sister due to liver failure from methadone use in 2021. Problem List - Migraine - stress related neck pain - Herpes Simplex Virus (HSV) infection genitalia with flare-up through 2- 4 times a year - History of uterine prolapse status post complete hysterectomy, ovaries retained - Hyperlipidemia - obesity Patient Instructions - Consider scheduling a colonoscopy for recommended colorectal cancer screening. - Maintain a healthy weight; consider seeking nutritional advice. - Consult pharmacy regarding eligibility for the shingles vaccine under age 50. - Follow up with dermatology for potential mole assessment. - Use sumatriptan and promethazine as needed for migraines and - continue antiviral treatment for herpes outbreaks as usual. Orders: Orders Amylase Today A60.00 - Herpesviral infection of urogenital system, unspecified, E66.09 - Other obesity due to excess calories, E78.2 - Mixed hyperlipidemia, G43.009 - Migraine without aura, not intractable, without status migrainosus, Z00.01 - Encounter for general adult medical examination with abnormal findings, Z80.0 - Family history of malignant neoplasm of digestive organs, Z81.3 - Family history of other psychoactive substance abuse and dependence Lipid Panel Today A60.00 - Herpesviral infection of urogenital system, unspecified, E66.09 - Other obesity due to excess calories, E78.2 - Mixed hyperlipidemia, G43.009 - Migraine without aura, not intractable, without status migrainosus, Z00.01 - Encounter for general adult medical examination with abnormal findings, Z80.0 - Family history of malignant neoplasm of digestive organs, Z81.3 - Family history of other psychoactive substance abuse and dependence Vitamin D 25-OH (D2 and D3) Today A60.00 - Herpesviral infection of urogenital system, unspecified, E66.09 - Other obesity due to excess calories, E78.2 - Mixed hyperlipidemia, G43.009 - Migraine without aura, not intractable, without status migrainosus, Z00.01 - Encounter for general adult medical examination with abnormal findings, Z80.0 - Family history of malignant neoplasm of digestive organs, Z81.3 - Family history of other psychoactive substance abuse and dependence TSH reflex Free T4 Today A60.00 - Herpesviral infection of urogenital system, unspecified, E66.09 - Other obesity due to excess calories, E78.2 - Mixed hyperlipidemia, G43.009 - Migraine without aura, not intractable, without status migrainosus, Z00.01 - Encounter for general adult medical examination with abnormal findings, Z80.0 - Family history of malignant neoplasm of digestive organs, Z81.3 - Family history of other psychoactive substance abuse and dependence Complete Blood Count Auto Diff Today A60.00 - Herpesviral infection of urogenital system, unspecified, E66.09 - Other obesity due to excess calories, E78.2 - Mixed hyperlipidemia, G43.009 - Migraine without aura, not intractable, without status migrainosus, Z00.01 - Encounter for general adult medical exa mination with abnormal findings, Z80.0 - Family history of malignant neoplasm of digestive organs, Z81.3 - Family history of other psychoactive substance abuse and dependence Comprehensive [place]. Panel Fast Today A60.00 - Herpesviral infection of urogenital system, unspecified, E66.09 - Other obesity due to excess calories, E78.2 - Mixed hyperlipidemia, G43.009 - Migraine without aura, not intractable, without status migrainosus, Z00.01 - Encounter for general adult medical examination with abnormal findings, Z80.0 - Family history of malignant neoplasm of digestive organs, Z81.3 - Family history of other psychoactive substance abuse and dependence Herpes Simplex Virus Ab IgG Today A60.00 - Herpesviral infection of urogenital system, unspecified, E66.09 - Other obesity due to excess calories, E78.2 - Mixed hyperlipidemia, G43.009 - Migraine without aura, not intractable, without status migrainosus, Z00.01 - Encounter for general adult medical examination with abnormal findings, Z80.0 - Family history of malignant neoplasm of digestive organs, Z81.3 - Family history of other psychoactive substance abuse and dependence UA CC w/rflx Micro + Cult Today A60.00 - Herpesviral infection of urogenital system, unspecified, E66.09 - Other obesity due to excess calories, E78.2 - Mixed hyperlipidemia, G43.009 - Migraine without aura, not intractable, without status migrainosus, Z00.01 - Encounter for general adult medical examination with abnormal findings, Z80.0 - Family history of malignant neoplasm of dig estive organs, Z81.3 - Family history of other psychoactive substance abuse and dependence Lipase Today A60.00 - Herpesviral infection of urogenital system, unspecified, E66.09 - Other obesity due to excess calories, E78.2 - Mixed hyperlipidemia, G43.009 - Migraine without aura, not intractable, without status migrainosus, Z00.01 - Encounter for general adult medical examination with abnormal findings, Z80.0 - Family history of malignant neoplasm of digestive organs, Z81.3 - Family history of other psychoactive substance abuse and dependence Referrals Gastroenterology Referral Z12.11 - Encounter for screening for malignant neoplasm of colon Dermatology Referral Z12.83 - Encounter for screening for malignant neoplasm of skin
== END 2025-01-28 14:05 | disposition home or self-care (01) ==
LOC: HO.HMCC 13:27
PROVIDERS: PCP Internal Medicine; Visit Provider Internal Medicine
DX: Z00.00 Encounter for general adult medical examination without abnormal findings (principal); G43.009 Migraine without aura, not intractable, without status migrainosus; E66.811 Obesity, class 1; Z68.30 Body mass index [BMI] 30.0-30.9, adult; A60.00 Herpesviral infection of urogenital system, unspecified; E78.2 Mixed hyperlipidemia; Z80.0 Family history of malignant neoplasm of digestive organs; Z81.3 Family history of other psychoactive substance abuse and dependence; Z12.11 Encounter for screening for malignant neoplasm of colon

== ENCOUNTER → 2025-01-28 13:26 | Outpatient (BNVA) | payer OTHER, SELFPAY | PROVIDERS: PCP Internal Medicine; Visit Provider Internal Medicine | DX: Z00.01 Encounter for general adult medical examination with abnormal findings (principal); G43.009 Migraine without aura, not intractable, without status migrainosus; A60.00 Herpesviral infection of urogenital system, unspecified; E66.811 Obesity, class 1; E66.09 Other obesity due to excess calories; Z68.30 Body mass index [BMI] 30.0-30.9, adult; E78.2 Mixed hyperlipidemia; Z80.0 Family history of malignant neoplasm of digestive organs; Z81.3 Family history of other psychoactive substance abuse and dependence | CPT/HCPCS: 96127 ==

== ENCOUNTER 2025-06-02 08:47 | Day surgery (SDC) | payer OTHER, SELFPAY ==
--- OUTSIDE RECORDS SUMMARY | 2025-05-06 11:15 | XMS_ITS | Clinical Summary ---
Author Organization [facility] [address] it Address [address] [place] [address] Care Team Providers Care Production Grip Name Role Phone Unavailable Primary Care Provider [...] Upcoming Encounters Date Type Department Care Team ([facility] Contact Info) Description 09/10/2025 8:30 AM EDT Appointment Radiology Department - [address] [phone] Health Maintenance Due Date Last Done Comments [...] COVID-19 Vaccine ( season) 2024 Influenza Vaccine (Season Ended) 2025 07/25/2016, 10/06/2015, 07/18/2013, Additional history exists Breast Cancer [...] age to complete this topic Meningococcal B Vaccine Aged Out No l onger eligible based on patient's age to complete [...] interpreted with the aid of computer-aided detection. Comparison is made with 08/10/2023 and as far back as 07/16/2020. Breast parenchyma is heterogeneously dense, which may obscure small masses. Chronic bilateral scattered and loosely grouped calcifications which have similar appearance in both breasts without a dominant suspicious grouping. No new suspicious mass or architectural distortion. Impression: No mammographic evidence of malignancy. BI-[place] 2[place] [address] Procedure Note Cherrie Mae MD - 10/06/2024 [...] No mammographic evidence of malignancy. BI-RADS 2-benign [address] [address] [address] [place] [employer] IMG XR PROCEDURES Final Res ult from Last 3 Months or Most Recently Relevant to Health Maintenance
[2025-05-29 13:43] VITALS: BMI 30.1
--- NOTE | 2025-06-01 13:35 | P.CONAN_ITS ---
HPI - Anesthesia Eval Consult details Narrative: 49 yr old female for colonoscopy s/p hysterctomy PMFSH Active Problems Active Problems: All Active Problems Skin cancer screening (Acute) Colon cancer screening (Acute) Family history of drug abuse (Acute) Family history of esophageal cancer (Acute) Family history of pancreatic cancer (Acute) Obesity due to excess calories (Acute) Recurrent genital herpes (Acute) Encounter for general adult medical examination with abnormal findings (Acute) Vaginal yeast infection (Acute) Overweight (BMI 25.0-29.9) (Acute) Hyperlipidemia (Acute) Stress incontinence (Acute) Right torticollis (Acute) Migraine without aura (Acute) MDD (major depressive disorder), recurrent episode (Acute) Menopausal state (Acute) Screening for osteoporosis (Acute) Eczema (Acute) Herpes (Acute) Past Medical History Medical History (Updated 05/29/25 @ 13:44 by Joanne Calvert RN) Hyperlipidemia Eczema Herpes Migraines Depression Sinusitis Family History Family History Sister Mental health disorder Substance abuse Pancreas cancer Mother Hypertension Father Esophagus cancer Surgical History Surgical History H/O: hysterectomy Social History Social History (Updated 05/29/25 @ 13:44 by Joanne Calvert RN) Household Members: Children Housing: House Are you a primary hospice care transitions coordinator to a significant other at home: Yes Do you presently have visiting nurse or other home services: No Alcohol intake: current Alcohol intake frequency: a few times a week Patient Tobacco Use Status: Never used Tobacco e-Cigarette/Vaping Use: Never Used service: No Current occupational status: employed Current occupation: [employer] Cognitive needs: No Hearing needs: No Vision needs: Yes (wear glasses) Meds Allergies Allergy/AdvReac Type Severity Reaction Status Date / Time amoxicillin Allergy Mild rash Verified 01/28/25 13:36 Exam Height,Weight and Vital Signs: Height 5 ft 3 in Weight 77.02 kg
[2025-06-02 09:22] VITALS: BP 123/71; PULSE 80; RESP 14; TEMP 36.9; O2SAT 97; BMI 29.3
[2025-06-02] MEDS: Lactated Ringers 1,000 ML 100 ML IVCONT (09:26)
--- NOTE | 2025-06-02 09:51 | HO.ANESPROP2 ---
[facility] Active Problems Active Problems: All Active Problems (Updated 05/29/25 @ 13:44 by Joanne Calvert RN) Skin cancer screening (Acute) Colon cancer screening (Acute) Family history of drug abuse (Acute) Family history of esophageal cancer (Acute) Family history of pancreatic cancer (Acute) Obesity due to excess calories (Acute) Recurrent genital herpes (Acute) Encounter for general adult medical examination with abnormal findings (Acute) Vaginal yeast infection (Acute) Overweight (BMI 25.0-29.9) (Acute) Hyperlipidemia (Acute) Stress incontinence (Acute) Right torticollis (Acute) Migraine without aura (Acute) MDD (major depressive disorder), recurrent episode (Acute) Menopausal state (Acute) Screening for osteoporosis (Acute) Eczema (Acute) Herpes (Acute) Past Medical History Medical History Hyperlipidemia Eczema Herpes Migraines Depression Sinusitis Family History Family History Sister Mental health disorder Substance abuse Pancreas cancer Mother Hypertension Father Esophagus cancer Surgical History Surgical History H/O: hysterectomy Social History Social History Household Members: Children Housing: House Are you a primary acute care nurse practitioner to a significant other at home: No Do you presently have visiting nurse or other home services: No Alcohol intake: current Alcohol intake frequency: holidays/special occasions only Patient Tobacco Use Status: Never used Tobacco e-Cigarette/Vaping Use: Never Used Use of substances other than those prescribed or required for medical reasons: Yes Substance Use Frequency: Weekly Have you been hit, kicked, punched, or otherwise hurt by someone within the past year? If so, by whom?: No Are you DNR?: No Advance Directives: No Advance Directives Information Provided: Yes Patient : Yes : No Poor oral hygiene: No service: No Current occupational status: employed Current occupation: [employer] Cognitive needs: No Hearing needs: No Vision needs: Yes (wear glasses) Meds Allergies Allergy/AdvReac Type Severity Reaction Status Date / Time amoxicillin Allergy Mild rash Verified 06/02/25 09:14 Active Medications: Current Medications Lactated Ringer's (Lr) 1,000 mls @ 100 mls/hr IVCONT .Q10H LARISSA Last Admin: 06/02/25 09:26 Dose: 100 mls/hr Exam Height,Weight and Vital Signs: Height 5 ft 3 in Weight 75 kg Last Vital Signs Temp 98.4 F 06/02/25 09:22 Pulse 80 06/02/25 09:22 Resp 14 06/02/25 09:22 BP 123/71 06/02/25 09:22 Pulse Ox 97 06/02/25 09:22 O2 Del Method Room Air 06/02/25 09:22
--- NOTE | 2025-06-02 09:53 | P.CONAN_ITS ---
[facility] Active Problems Active Problems: All Active Problems (Updated 05/29/25 @ 13:44 by Joanne Calvert RN) Skin cancer screening (Acute) Colon cancer screening (Acute) Family history of drug abuse (Acute) Family history of esophageal cancer (Acute) Family history of pancreatic cancer (Acute) Obesity due to excess calories (Acute) Recurrent genital herpes (Acute) Encounter for general adult medical examination with abnormal findings (Acute) Vaginal yeast infection (Acute) Overweight (BMI 25.0-29.9) (Acute) Hyperlipidemia (Acute) Stress incontinence (Acute) Right torticollis (Acute) Migraine without aura (Acute) MDD (major depressive disorder), recurrent episode (Acute) Menopausal state (Acute) Screening for osteoporosis (Acute) Eczema (Acute) Herpes (Acute) Past Medical History Medical History Hyperlipidemia Eczema Herpes Migraines Depression Sinusitis Functional capacity: independent ambulation Patient : No Family History Family History Sister Mental health disorder Substance abuse Pancreas cancer Mother Hypertension Father Esophagus cancer Family history of problems with anesthesia: No Surgical History Surgical History H/O: hysterectomy History of Problems with Anesthesia: No Social History Social History Household Members: Children Housing: House Are you a primary care manager to a significant other at home: No Do you presently have visiting nurse or other home services: No Alcohol intake: current Alcohol intake frequency: holidays/special occasions only Patient Tobacco Use Status: Never used Tobacco e-Cigarette/Vaping Use: Never Used service: No Current occupational status: employed Current occupation: [employer] Cognitive needs: No Hearing needs: No Vision needs: Yes (wear glasses) Meds Allergies Allergy/AdvReac Type Severity Reaction Status Date / Time amoxicillin Allergy Mild rash Verified 06/02/25 09:14 Active Medications: Current Medications Lactated Ringer's (Lr) 1,000 mls @ 100 mls/hr IVCONT .Q10H LARISSA Last Admin: 06/02/25 09:26 Dose: 100 mls/hr Exam Height,Weight and Vital Signs: Height 5 ft 3 in Weight 75 kg Last Vital Signs Temp 98.4 F 06/02/25 09:22 Pulse 80 06/02/25 09:22 Resp 14 06/02/25 09:22 BP 123/71 06/02/25 09:22 Pulse Ox 97 06/02/25 09:22 O2 Del Method Room Air 06/02/25 09:22 Airway Mallampati Class: II TM Dist: >3cm Heart: RRR Lungs: CTA Assessment and Plan Assessment Anesthesia Assessment: Anesthesia Plan Discussed Final Anesthetic Review Family History of Problems with Anesthesia: No History of Problems with Anesthesia: No NPO: Yes ASA Class: II Final Preanesthetic Review: Meds/Allgs Chart Reviewed, Consent Obtained/Reviewed and Anes Risks/Benef Reviewed Patient Risk: Low Procedure Risk: Low Anesthetic Plan Anesthetic Plan: MAC: Disposition: Standard PACU
--- NOTE | 2025-06-02 10:23 | MHC.SHP ---
Pre-Procedural Eval Section A - 24 Hr Update-Section A only Date of Service: 06/02/25 The patient is an INPATIENT: No Changes since office visit: No Cold of Flu in the past 2 weeks, No New Medical Problems, No Changes in Medication and No Patient answered all questions The patient has been examined within 24 hours of the surgical procedure. The History & Physical has been completed within 30 days and I have reviewed it.: No Section B - Complete if H&P > 30 days Chief Complaint: screening Allergies: Allergies Allergy/AdvReac Type Severity Reaction Status Date / Time amoxicillin Allergy Mild rash Verified 06/02/25 09:14 Plan I have reviewed the history and physical and performed a pertinent physical examination on my patient. No changes have occurred unless specified. Time Spent With Patient Time: Total time managing care of this patient today ____ minutes.
[2025-06-02 11:15] VITALS: BP 90/51; PULSE 80; RESP 16; TEMP 36.3; O2SAT 98
--- NOTE | 2025-06-02 11:27 | OP_ITS ---
DATE OF SERVICE: 06/02/2025 SURGEON: Duncan Lam MD INDICATIONS: Colon cancer screening. PREOPERATIVE DIAGNOSIS: POSTOPERATIVE DIAGNOSIS: PROCEDURE PERFORMED: Colonoscopy to the terminal ileum. ESTIMATED BLOOD LOSS: COMPLICATIONS: ANESTHESIA: ASSISTANTS: SPECIMENS: MEDICATIONS: Monitored anesthesia care. DESCRIPTION OF PROCEDURE: A history and physical performed. The risks and benefits of the procedure were explained to the patient. Informed consent was obtained. The patient was placed in the left lateral decubitus position. A digital rectal exam was performed and was found to be normal. The Olympus pediatric video colonoscope was introduced into the rectum and advanced to the cecum. The cecum was identified by transillumination, palpation, and identification of ileocecal valve. Examination was performed. The scope was removed. She tolerated the procedure well and was taken to recovery room in stable condition. FINDINGS: The terminal ileum was examined and appeared normal. The visualized colonic mucosa was normal. The quality of prep was good. No polyps were identified. Retroflexed examination showed some small internal hemorrhoids. IMPRESSION: Normal colonoscopy. RECOMMENDATION: 1. Follow up as needed. 2. Repeat colonoscopy is recommended in 10 years for average-risk individuals. MD KAMLESH Saravia/ADITYA / [phone]
[2025-06-02 11:30] VITALS: BP 122/53; PULSE 69; RESP 20; O2SAT 98
--- NOTE | 2025-06-02 12:46 | HO.POSTANES ---
Post Anesthesia Evaluation Post Anesthesia Evaluation Date of Service: 06/02/25 Vital Signs: Vital Signs Temp Pulse Resp BP Pulse Ox O2 Del Method 06/02/25 11:30 69 20 122/53 L 98 Room Air 06/02/25 11:15 97.4 F 80 16 90/51 L 98 Room Air 06/02/25 09:22 98.4 F 80 14 123/71 97 Room Air Anesthesia: Monitored Mental Status: Awake Pain Control: Satisfactory Nausea/Vomiting: None Hydration: Adequate Anesthesia-Related Issues: No Anes. Related Issues
== END 2025-06-02 12:03 | disposition home or self-care (01) ==
PROVIDERS: PCP Internal Medicine; Visit Provider Internal Medicine Gastroenterology
PROC: 0DJD8ZZ Inspection of Lower Intestinal Tract, Via Natural or Artificial Opening Endoscopic (ICD-10-PCS; CPT 45378; principal; 2025-06-02 10:10)
DX: Z12.11 Encounter for screening for malignant neoplasm of colon (principal); K64.8 Other hemorrhoids; E78.5 Hyperlipidemia, unspecified; B00.9 Herpesviral infection, unspecified; G43.909 Migraine, unspecified, not intractable, without status migrainosus; F32.A Depression, unspecified; Z79.1 Long term (current) use of non-steroidal anti-inflammatories (NSAID); Z79.899 Other long term (current) drug therapy; Z98.890 Other specified postprocedural states
CPT/HCPCS: 45378

== ENCOUNTER 2025-06-11 09:26 | Outpatient (REF) | payer OTHER, SELFPAY ==
--- OUTSIDE RECORDS SUMMARY | 2025-06-02 06:10 | XMS_ITS ---
Author Organization [facility] Address [address] [place] [id number] Care Team Providers Care Washer Meat Name Role Phone [place] THRASHER, Denise Primary Care Provider Sigird Lam Jr, Duncan Conley [phone] REASON FOR VISIT screening Encounters Encounter Location Date Provider Diagnosis [facility] Outpatient [address] [place] [id number] 06/02/2025 Duncan Lam Jr Plan Of Treatment No Information Progress Notes * NOEL RUIZB: 7 (49 yo F)Acc No.[id number]:06/02/2025 COLON WITH MAC Patient: NIMISHA ENAMORADO Provider: Marco Antonio Lam MD :1975 A ge:49 Y S ex:Female Date:06/02/2025 Address:[address] [place], [place] [id number] Pcp:Denise Storey MD Subjective: * Chief Complaints: * 1 . Screening. * Medical History: Objective: * Vitals: Assessment: Plan: * Treatment: * * The named appointment provid er may or may not be the originator of this progress note, and it is not deemed complete until electronically signed by the appointment provider. Sign off status: Pending * Provider: Marco Antonio Lam MD Date: 06/02/2025 Generated for Mauroi ng/Fadimag/eTransmitting on: 06/11/2025 09:44 AM EDT
--- OUTSIDE RECORDS SUMMARY | 2025-06-11 09:45 | XMS_ITS | Clinical Summary ---
Author Organization [facility] it Address [address] [place] [address] Care Team Providers Care Project Coach Name Role Phone Unavailable Primary Care Provider [...] Upcoming Encounters Date Type Department Care Team ([facility] Contact Info) Description 09/10/2025 8:30 AM EDT Appointment Radiology Department [address] [phone] Health Maintenance Due Date Last Done Comments Hepatitis B Vaccines (1 of 3 - 19+ 3-dose series) 1996 Cervical Cancer Screening: Pap Smear 1998 DTaP,Tdap,and Td Vaccines (2 - Td or Tdap) 06/06/2017 06/06/2007 Cholesterol Screening (Lipid Panel) 10/21/2022 Colorectal Cancer Screening: Colonoscopy 10/21/2022 HIV Screening 10/21/2022 Hepatitis C Screening 10/21/2022 Social Influencers of Health Screening 10/21/2022 COVID-19 Vaccine ( season) 2024 Depression Screening 11/12/2024 Influenza Vaccine (#1) 2025 6, 10/06/2015, 07/18/2013, Additional history exists Breast [...] 5 Years) and At-Risk Patients (6 to 49 Years) Aged Out No longer eligible based [...] No mammographic evidence of malignancy. BI-R[place] [address] Procedure Note Cherrie Mae MD - 10/06/2024 [...] No mammographic evidence of malignancy. BI-RADS 2-benign [address] [address] [place] VASCULAR NURSE IMG XR PROCEDURES Final Res ult from Last 3 Months or Most Recently Relevant to Health Maintenance
[2025-06-11 13:12] LABS: MANUAL DIFF FLAG NO
[2025-06-11 13:21] LABS: Hematocrit 36.3 % (37.0-47.0); Hemoglobin 12.1 g/dl (12.0-16.0); Imm Gran Abs Auto 0.04 X10*3/uL (0.00-0.03); Imm Gran Pct Auto 0.9 % (0.0-0.4); Lymphocytes Absolute Auto 1.2 X10*3/uL (1.2-4.9); Mean Corpuscular HGB Conc 33.3 g/dl (31.0-35.0); Mean Corpuscular Hemoglobin 30.2 pg (27.0-33.0); Mean Corpuscular Volume 90.5 fL (80.0-98.0); NRBC Abs Auto 0.000 X10*3/uL (0.0-0.012); NRBC Pct Auto 0.0 /100WBC (0.0-0.2); Platelet Count 269 X10*3/uL (160-400); Red Blood Count 4.01 X10*6/uL (4.20-5.50); White Blood Count 4.2 X10*3/uL (4.8-10.8)
[2025-06-11 13:24] LABS: Appearance Urine Clear; Glucose Urine UA Negative (Negative); PH 6.0 (5.0-9.0); Specific Gravity - Urine 1.015 (1.005-1.025)
[2025-06-11 14:08] LABS: Alanine Aminotransferase 15 U/L (0-31); Albumin Level 4.5 g/dL (3.5-5.0); Alkaline Phosphatase 65 U/L (39-117); Amylase 32 U/L (28-100); Anion Gap 10 (12-20); Aspartate Amino Transferase 25 U/L (5-31); Blood Urea Nitrogen 10 mg/dL (9-16); Calcium 8.3 mg/dL (8.4-10.2); Carbon Dioxide 26 mmol/L (22-29); Chloride 107 mmol/L (96-108); Cholesterol 259 mg/dL (<200); Estimated Glomerular Filt Rate > 60; HDL Cholesterol 43 mg/dL (>40); Lipase 19 U/L (8-78); Potassium 3.9 mmol/L (3.3-5.1); Sodium 139 mmol/L (135-145); Total Protein 7.2 g/dL (6.5-8.0); Triglycerides 147 mg/dL (<150)
[2025-06-15 13:14] LABS: Vitamin D 25-OH, D2 <4 ng/mL; Vitamin D 25-OH, D3 26 ng/mL; Vitamin D 25-OH, Total 26 ng/mL (30-100)
== END 2025-06-11 09:27 | disposition home or self-care (01) ==
LOC: HO.HMGCLDS 09:26
PROVIDERS: PCP Internal Medicine; Visit Provider Internal Medicine
DX: Z00.01 Encounter for general adult medical examination with abnormal findings (principal); G43.009 Migraine without aura, not intractable, without status migrainosus; A60.00 Herpesviral infection of urogenital system, unspecified; E66.09 Other obesity due to excess calories; E78.2 Mixed hyperlipidemia; Z80.0 Family history of malignant neoplasm of digestive organs; Z81.3 Family history of other psychoactive substance abuse and dependence
CPT/HCPCS: 36415; 80053; 80061; 81003; 82150; 82306; 83690; 84443; 85025; 86695; 86696

== ENCOUNTER 2025-07-22 08:58 | Outpatient (AMB) | payer OTHER, SELFPAY ==
--- OUTSIDE RECORDS SUMMARY | 2025-06-02 06:10 | XMS_ITS ---
Author Organization [facility] Address [address] [place] [id number] Care Team Providers Care Roll Winder Name Role Phone [place] THRASHER, Denise Primary Care Provider Duncan Oates Jr REASON FOR VISIT screening Encounters Encounter Location Date Provider Diagnosis [facility] Outpatient [address] [place] [id number] 06/02/2025 Duncan Lam Jr Plan Of Treatment No Information Progress Notes * NOEL RUZIB: 7 (49 yo F)Acc No.[id number]:06/02/2025 COLON WITH MAC Patient: NIMISHA ENAMORADO Provider: Marco Antonio Lam MD :1975 A ge:49 Y S ex:Female Date:06/02/2025 Address:[address] [place], [place] [id number] Pcp:Denise Storey MD Subjective: * Chief Complaints: [...] Lam MD Date: 06/02/2025 Generated for Mauroi ng/Faxing/eTransmitting on: 0 07/22/2025 10:36 AM EDT
[2025-07-22 08:59] VITALS: BP 118/68; PULSE 79; O2SAT 99; BMI 29.8
--- NOTE | 2025-07-22 08:59 | MHC.PC.OV ---
Vital Signs 07/22/25 08:59 Height 5 ft 3 in Weight 168 lb BMI 29.8 BP 118/68 Blood Pressure Location Lt brachial Position Sitting Pulse 79 Pulse Source Pulse Oximeter Pulse Oximetry (%) 99 Intake Visit Reasons: med management Allergies amoxicillin Allergy (Mild, Verified 07/22/25 09:01) rash Medication List - Last Reconciled 07/22/25 by Denise Storey MD acyclovir 5% (Zovirax) 1 appl topical ONCE PRN betamethasone dipropionate 0.05% 1 appl topical BID PRN citalopram 20 mg PO DAILY meloxicam 7.5 mg PO DAILY PRN promethazine 25 mg MI Q6H PRN sumatriptan succinate 25 mg PO Q2-4H PRN valacyclovir (Valtrex) 1,000 mg PO ONCE PRN Tobacco use date assessed: 01/28/25 Dental Screening Dental Screen Date: 01/28/25 HPI med management HPI Details History of Present Illness The patient is a 49-year-old female presenting with renewal of prescriptions and interest in genetic testing. TMJ and Neck Pain: - The patient is experiencing neck pain attributed to clenching and grinding. - The condition is managed with meloxicam and wearing a dental guard. - Previous recommendations included imaging, but these were not pursued. Migraines: - Previously experienced migraines, but now occurs approximately twice a year with less severity. - Occasionally uses promethazine for management. Medical History: - Depression, managed with citalopram. - TMJ disorder, managed with meloxicam. - History of migraines, managed with promethazine. Medications: - Citalopram for depression. - Meloxicam for neck pain and TMJ disorder. - Promethazine for migraines. Family History: - Brother with pancreatic cancer, positive BRCA mutation. - Mother alive, age 80. Diagnostic Results: Labs: - Cholesterol: 187 mg/dL (elevated). - Vitamin D: 26 ng/mL. Problem List - Depression - TMJ disorder - History of migraines - Hypercholesterolemia - family history of pancreatic cancer Patient Instructions - Continue taking meloxicam as needed with food. - Avoid combining meloxicam with other NSAIDs. - Start taking Vitamin D3, 1000 units daily. - Address elevated cholesterol through diet and weight management. - Genetic testing recommendation due to family history. Referral placed Patient has appointment in few months for physical exam labs are needed before visit fasting Review of Systems - General: No fever no chills - Neurological: No headaches no dizziness - Ear nose throat: No sore throat no hearing difficulty no ear pain - Cardiovascular: No syncope, no chest pain, no palpitations - Gastrointestinal: No nausea vomiting or diarrhea - Endocrine: No polyuria polydipsia no heat intolerance - Genitourinary: No dysuria , no blood in urine Physical Exam General: No acute distress HEENT: No acute findings Neck: Supple, cervical pain noted Respiratory system: Able to talk in full sentences, no audible wheeze Cardiovascular: S1-S2 regular in rate and rhythm Gastrointestinal: No pain Extremities: No new findings FILM TECHNICIAN: Alert awake oriented x3 motor sensory intact Skin: Normal turgor PFSH Medical History Hyperlipidemia Eczema Herpes Migraines Depression Sinusitis Surgical History H/O: hysterectomy Family History Sister Mental health disorder Substance abuse Pancreas cancer Mother Hypertension Father Esophagus cancer Social History Household Members: Children Both parents involved: No Caregiver staying overnight: No Housing: House Are you a primary healthcare translator to a significant other at home: No Do you presently have visiting nurse or other home services: No 75 years or older and lives alone: No Alcohol intake: current Alcohol intake frequency: holidays/special occasions only Patient Tobacco Use Status: Never used Tobacco e-Cigarette/Vaping Use: Never Used service: No Current occupational status: employed Current occupation: [employer] Cognitive needs: No Hearing needs: No Vision needs: Yes (wear glasses) Questionnaire Thrive Questionnaire Date Thrive assessed: 01/28/25 I am a: Patient What is your living situation today?: I have a steady place to live Within the past 12 months, did the food you bought not last and you didn't have the money to get more?: Never true Within the past 12 months, did you worry whether your food would run out before you got money to buy more?: Never true Do you have trouble paying for medicines?: No Do you have trouble getting transportation to medical appointments?: No Do you have trouble paying your heating and electricity bill?: No Do you have trouble taking care of your child, family member or friend?: No Do you have trouble with day-to-day activities such as bathing, preparing meals, shopping, managing finances, etc.?: No Are you currently unemployed and looking for a job?: No Are you interested in more education?: No Please select the resources that you would like help with: None Currently or been in a relationship where the following occur: No concerns reported THRIVE Score: 0 AUDIT C Alcohol Use Questionnaire (AUDIT-C) 1. How often do you have a drink containing alcohol?: 2-3 times a week 2. How many drinks containing alcohol do you have on a typical day when you are drinking?: 1 or 2 3. How often do you have six or more drinks on one occasion?: Never Total Score: 3 MARK-7 AMB Questionnaire MARK-7 Date MARK - 7 assessed: 01/28/25 Source: Developed by Drs. Joaquin Rosa, Rupali Frank, Jules Hussein and colleagues, with an educational shad from [employer]. Physical exam (Primary Care) Vital Signs: Last Vital Signs Pulse 79 07/22/25 08:59 BP 118/68 07/22/25 08:59 Pulse Ox 99 07/22/25 08:59 BMI result Body Mass Index 29.8 Tobacco/Smoking Status: Tobacco use Status Tobacco use date assessed 01/28/25 07/22/25 09:03 Patient Tobacco Use Status Never used Tobacco 07/22/25 09:03 e-Cigarette/Vaping Use Never Used 07/22/25 09:03 Thrive Assessment: Date of Thrive Assessment Date Thrive assessed 01/28/25 07/22/25 09:03 Currently or been in a relationship where the following occur: No concerns reported Coding Level of Care Code Est Pt Level 4 (17182) Diagnoses Family history of pancreatic cancer Z80.0 TMJ derangement M26.69 Mild episode of recurrent major depressive disorder F33.0 Major depression episode severity: mild Lipid disorder E78.9 Vitamin D deficiency E55.9 Overweight (BMI 25.0-29.9) E66.3 Assessment & Plan Assessment & Plan (1) Family history of pancreatic cancer: Code(s): Z80.0 - Family history of malignant neoplasm of digestive organs Category: Medical (2) TMJ derangement: Code(s): M26.69 - Other specified disorders of temporomandibular joint Category: Medical (3) MDD (major depressive disorder), recurrent episode: Code(s): F33.9 - Major depressive disorder, recurrent, unspecified Category: Medical Qualifiers: Major depression episode severity: mild Qualified Code(s): F33.0 - Major depressive disorder, recurrent, mild (4) Lipid disorder: Code(s): E78.9 - Disorder of lipoprotein metabolism, unspecified Category: Medical (5) Vitamin D deficiency: Code(s): E55.9 - Vitamin D deficiency, unspecified Category: Medical (6) Overweight (BMI 25.0-29.9): Code(s): E66.3 - Overweight Category: Medical Plan History of Present Illness The patient is a 49-year-old female presenting with renewal of prescriptions and interest in genetic testing. TMJ and Neck Pain: - The patient is experiencing neck pain attributed to clenching and grinding. - The condition is managed with meloxicam and wearing a dental guard. - Previous recommendations included imaging, but these were not pursued. Migraines: - Previously experienced migraines, but now occurs approximately twice a year with less severity. - Occasionally uses promethazine for management. Medical History: - Depression, managed with citalopram. - TMJ disorder, managed with meloxicam. - History of migraines, managed with promethazine. Medications: - Citalopram for depression. - Meloxicam for neck pain and TMJ disorder. - Promethazine for migraines. Family History: - Brother with pancreatic cancer, positive BRCA mutation. - Mother alive, age 80. Diagnostic Results: Labs: - Cholesterol: 187 mg/dL (elevated). - Vitamin D: 26 ng/mL. Problem List - Depression - TMJ disorder - History of migraines - Hypercholesterolemia - family history of pancreatic cancer Patient Instructions - Continue taking meloxicam as needed with food. - Avoid combining meloxicam with other NSAIDs. - Start taking Vitamin D3, 1000 units daily. - Address elevated cholesterol through diet and weight management. - Genetic testing recommendation due to family history. Referral placed Patient has appointment in few months for physical exam labs are needed before visit fasting Orders: Orders Complete Blood Count Auto Diff 4 Months E55.9 - Vitamin D deficiency, unspecified, E66.3 - Overweight, E78.9 - Disorder of lipoprotein metabolism, unspecified, F33.0 - Major depressive disorder, recurrent, mild, M26.69 - Other specified disorders of temporomandibular joint, Z80.0 - Family history of malignant neoplasm of digestive organs Comprehensive [place]. Panel Fast 4 Months E55.9 - Vitamin D deficiency, unspecified, E66.3 - Overweight, E78.9 - Disorder of lipoprotein metabolism, unspecified, F33.0 - Major depressive disorder, recurrent, mild, M26.69 - Other specified disorders of temporomandibular joint, Z80.0 - Family history of malignant neoplasm of digestive organs Lipid Panel 4 Months E55.9 - Vitamin D deficiency, unspecified, E66.3 - Overweight, E78.9 - Disorder of lipoprotein metabolism, unspecified, F33.0 - Major depressive disorder, recurrent, mild, M26.69 - Other specified disorders of temporomandibular joint, Z80.0 - Family history of malignant neoplasm of digestive organs Referrals Genetics Referral Z80.0 - Family history of malignant neoplasm of digestive organs Medications: Refilled meloxicam 7.5 mg PO DAILY PRN 90 tabs 0RF pain citalopram 20 mg PO DAILY 90 tabs 0RF
--- OUTSIDE RECORDS SUMMARY | 2025-07-22 10:37 | XMS_ITS | Clinical Summary ---
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 Name Role Phone Unavailable Primary Care Provider [...] Upcoming Encounters Date Type Department Care Team ([facility] Contact Info) Description 09/10/2025 8:20 AM EDT Appointment Radiology Department - [address] [phone] Health Maintenance Due Date Last Done Comments Hepatitis B Vaccines (1 of 3 - 19+ 3-dose series) 1996 Cervical Cancer Screening: Pap Smear 1998 DTaP,Tdap,and Td Vaccines (2 - Td or Tdap) 06/06/2017 06/06/2007 Cholesterol Screening (Lipid Panel) 10/21/2022 Colorectal Cancer Screening: Colonoscopy 10/21/2022 HIV Screening 10/21/2022 Hepatitis C Screening 10/21/2022 Social Influencers of Health Screening 10/21/2022 Depression Screening 11/12/2024 COVID-19 Vaccine ( season) 2025 Influenza Vaccine (#1) 2025 6, 10/06/2015, 07/18/2013, [...] No mammographic evidence of malignancy. BI-RADS 2-benign [address] [address] Procedure Note Cherrie Mae MD - 10/06/2024 [...] No mammographic evidence of malignancy. BI-RADS 2-benign [address] [address] [address] [place] IMG XR PROCEDURES Final Res ult from Last 3 Months or Most Recently Relevant to Health Maintenance Insurance [facility]
--- OUTSIDE RECORDS SUMMARY | 2025-07-22 10:37 | XMS_ITS | Patient Health Record ---
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 Name Role Phone [place] THRASHER, Asma Primary Care Provider Duncan Oates Jr Unavailable Allergies Allergen (clinical drug ingredient) Drug/Non Drug Allergy documented on EMR Reaction Allergy Type Onset Date Status amoxicillin Amoxicillin Unknown Drug Allergy Act arsenio Reason For Referral No Information Medications Medication SIG (Take, Route, Frequency, Duration) Notes Start Date End Date Status Citalopram Hydrobromide 20 MG 1 tablet Orally Once a day for 30 day(s) 05/04/2025 Active Valtrex 1 GM 1 tablet Orally Once a day for 10 day(s) as needed 05/04/2025 Active Meloxicam 7.5 MG 1 tablet Orally Once a day for 30 day(s) as needed 05/04/2025 Active Immunizations Vaccine Route Administration Date Status Comme nts Influenza Unknown 05/04/2025 Refused Social History Tobacco Use: Social History Observation Description Date Details (start date - stop date) Never Smoker NA - NA Tobacco Control (Standard) Question Answer Notes Tobacco use: Nonsmoker AUDIT-C (Standard) Question Answer Notes Did you have a drink contain ing alcohol in the past year? Yes How often did you have a dri nk containing alcohol in the past year? 2 to 3 times a week (3 points) How many drinks did you have on a typical day when you were drinking in the past year? 1 or 2 drinks (0 point) How often did you have six o r more drinks on one occasion in the past year? 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 [address] [facility] [address] [place] [address] 05/04/2025 Duncan Lam Jr Encounter for screening for malignant neoplasm of colon Z12.11 ; Encounter for other preprocedural examination Z01.818 and NSAID long-term use Z79.1 Assessments Encounter Date Diagnosis (ICD Code) Assessment Notes Treatment Notes Treatment Clinical Notes Section Notes 05/04/2025 Encounter for screening for malignant neoplasm of colon (ICD-10 - Z12.11) We discussed colonoscopy today. We discussed risks and benefits of the procedure today. She understands these and agrees to proceed. She is advised to stop meloxicam 1 week before the procedure. 05/04/2025 Encounter for other preprocedural examination (ICD-10 - Z01.818) We discussed colonoscopy today. We discussed risks and benefits of the procedure today. She understands these and agrees to proceed. She is advised to stop meloxicam 1 week before the procedure. 05/04/2025 NSAID long-term use (ICD-10 - Z79.1) We discussed colonoscopy today. We discussed risks and benefits of the procedure today. She understands these and agrees to proceed. She is advised to stop meloxicam 1 week before the procedure. Plan Of Treatment Future Test Test Name Order Date COLONOSCOPY 05/04/2025 Insurance Providers Payer Name Payer Address Payer Phone Subscriber Number Group Number Insured Name Patient Relationship to Insured Coverage Start Date Coverage End Date [facility] [address] [facility] [place], [place] [phone] [id number] NIMISHA RUIZ Self - patient is the insured Medical (General) History Medical History History ICD Code Migraine headaches Depression Hyperlipidemia Elevated body mass index HSV infection Surgical History Surgery Date(Month/Year) hysterectomy for uterine prolapse 2011
== END 2025-07-22 10:10 | disposition home or self-care (01) ==
LOC: HO.HMCC 08:59
PROVIDERS: PCP Internal Medicine; Visit Provider Internal Medicine
DX: Z80.0 Family history of malignant neoplasm of digestive organs (principal); M26.69 Other specified disorders of temporomandibular joint; F33.0 Major depressive disorder, recurrent, mild; E78.9 Disorder of lipoprotein metabolism, unspecified; E55.9 Vitamin D deficiency, unspecified; E66.3 Overweight